=== PATIENT | female | born 1960 | race Hispanic/Latino ===

== ENCOUNTER 2018-01-23 05:49 | Day surgery (SDC) | payer MEDICAID ==
[~2018-01-23] VITALS: Ht 152.4 cm; Wt 90.9 kg
[~2018-01-23 05:49] MED LIST: CETI10TA57 PO; ERGO500014 PO; FLUTICASONE IH; LISI-613 PO; MONT10TA24 PO; OMEP20TA25 PO; PRAV20TA4 PO; PROVENTIL PO
[2018-01-23] MEDS ORDERED: SODIUM CHLORIDE 0.9% 1000ML 1,000 ML IV ONE (06:17)
[2018-01-23 06:48] VITALS: BP 146/55
[2018-01-23] MEDS ORDERED: LIDOCAINE HCL 2% 20ML ONE (07:22)
[2018-01-23] MEDS ORDERED: GLYCOPYRROLATE 0.2 MG/ML 5 ML VIAL ONE (07:22)
[2018-01-23] MEDS ORDERED: SUCCINYLCHOLINE CHLORIDE 20 MG/ML 10 ML VIAL ONE (07:22)
[2018-01-23] MEDS ORDERED: PROPOFOL 1000 MG/100 ML 100 ML IV ONE (07:23)
== END 2018-01-23 08:17 | disposition home or self-care (01) ==
LOC: DAH 05:49 → ENDO 05:49
PROVIDERS: ATTEND Internal Medicine
DX: K29.50 Unspecified chronic gastritis without bleeding (principal); E66.01 Morbid (severe) obesity due to excess calories; E11.9 Type 2 diabetes mellitus without complications; I85.10 Secondary esophageal varices without bleeding; K74.60 Unspecified cirrhosis of liver
CPT/HCPCS: 43239; 82948 ×2; 88305; 88312; 88342; A4606; J0330; J2704; J3490 ×2; J7030

== ENCOUNTER → 2018-02-27 | Outpatient (CLI) | payer MEDICAID ==
[2018-02-27 08:59] LABS: BASOPHILS % (AUTO) 0.6 % (0.0-5.0); EOSINOPHILS % (AUTO) 2.7 % (0.0-8.0); HEMATOCRIT 35.2 % (36-48); LYMPHOCYTES % (AUTO) 30.3 % (21.0-51.0); MEAN CORPUSCULAR HEMOGLOBIN 31.4 pg (27.0-33.0); MEAN CORPUSCULAR HGB CONC 35.2 g/dL (32.0-36.0); MEAN CORPUSCULAR VOLUME 89.3 fL (79-99); MONOCYTES % (AUTO) 7.3 % (3.0-13.0); NEUTROPHILS % (AUTO) 59.1 % (40.0-77.0); NUCLEATED RED BLOOD CELLS 0.1 % (0.0-0.19); PLATELET COUNT (AUTO) 74 K/uL (130-400); RED BLOOD CELL COUNT(AUTO) 3.94 MIL/uL (4.00-5.50); RED CELL DISTRIBUTION WIDTH 15.8 % (11.0-15.5); WHITE BLOOD COUNT (AUTO) 4.4 K/uL (4.8-10.8)
[2018-02-27 09:11] LABS: INR 1.07 (0.85-1.15); PROTHROMBIN TIME 11.2 SEC (9.6-11.6)
[2018-02-27 09:12] LABS: ALBUMIN 3.2 g/dL (3.5-5.0); BILIRUBIN,TOTAL 1.3 mg/dL (0.2-1.0); CREATININE 0.6 mg/dL (0.5-1.5); POTASSIUM 3.8 mmol/L (3.5-5.1); TOTAL PROTEIN, SERUM 7.3 g/dL (6.0-8.3)
[2018-02-28 08:17] LABS: HEPATITIS A ANTIBODY IGM Negative (Negative); HEPATITIS B CORE IGM Negative (Negative); HEPATITIS Bs ANTIGEN SCREEN P Negative (Negative)
[2018-03-02 13:15] LABS: ALPHA-1-ANTITRYPSIN 143 mg/dL (90-200)
== END | disposition home or self-care (01) ==
LOC: RAH 07:10
PROVIDERS: ATTEND Internal Medicine Gastroenterology
DX: K74.60 Unspecified cirrhosis of liver (principal); R16.1 Splenomegaly, not elsewhere classified
CPT/HCPCS: 36415; 76700; 80053; 80074; 82103; 82105; 82390; 85025; 85610; 86704; 86706; 86708; 93975

== ENCOUNTER 2018-08-04 06:29 | Day surgery (SDC) | payer MEDICAID ==
[~2018-08-04] VITALS: Ht 149.9 cm; Wt 92.1 kg
[~2018-08-04 06:29] MED LIST changes: -LISI-613 PO; +SODIUM CHLORIDE 0.9% 1000ML 1,000 ML IV ONE
[2018-08-04 07:40] VITALS: BP 116/58
[2018-08-04] MEDS ORDERED: PROP10TA10 PO (08:30)
[2018-08-04] MEDS ORDERED: LACT10PA5 PO (08:30)
[2018-08-04] MEDS ORDERED: HEPA20DI7 IM (08:30)
[2018-08-04] MEDS ORDERED: PROPOFOL 10 MG/ML 20ML VIAL IV ONE (09:15)
[2018-08-04 09:24] VITALS: BP 91/41
[2018-08-04 09:29] VITALS: BP 94/48
[2018-08-04 09:34] VITALS: BP 106/46
== END 2018-08-04 09:51 | disposition home or self-care (01) ==
LOC: ENDO 06:29 → DAH 06:29 → ENDO 09:51
PROVIDERS: ATTEND Internal Medicine Gastroenterology
DX: K29.50 Unspecified chronic gastritis without bleeding (principal); I85.00 Esophageal varices without bleeding; K76.6 Portal hypertension; K31.89 Other diseases of stomach and duodenum; K56.609 Unspecified intestinal obstruction, unspecified as to partial versus complete obstruction; E78.5 Hyperlipidemia, unspecified; E11.9 Type 2 diabetes mellitus without complications; Z68.41 Body mass index [BMI] 40.0-44.9, adult; K74.60 Unspecified cirrhosis of liver; Z85.3 Personal history of malignant neoplasm of breast; Z79.899 Other long term (current) drug therapy; Z98.890 Other specified postprocedural states; Z79.84 Long term (current) use of oral hypoglycemic drugs; Z90.49 Acquired absence of other specified parts of digestive tract; Z80.0 Family history of malignant neoplasm of digestive organs; Z86.010 Personal history of colon polyps; I10 Essential (primary) hypertension
CPT/HCPCS: 43239; 82948 ×2; 88305; 88312; 93005; A4606; J2704; J7030

== ENCOUNTER → 2018-09-01 | Outpatient (CLI) | payer MEDICAID ==
[~2018-09-01] MED LIST changes: +HEPA20DI7 IM; +LACT10PA5 PO; +PROP10TA10 PO; -SODIUM CHLORIDE 0.9% 1000ML 1,000 ML IV ONE
== END | disposition home or self-care (01) ==
LOC: RAH 08:42
PROVIDERS: ATTEND Internal Medicine Gastroenterology
DX: K74.60 Unspecified cirrhosis of liver (principal)
CPT/HCPCS: 76700; 93975

== ENCOUNTER → 2019-02-05 | Outpatient (CLI) | payer MEDICAID | END | disposition home or self-care (01) | LOC: RAH 07:47 | PROVIDERS: ATTEND Internal Medicine Gastroenterology | DX: K74.60 Unspecified cirrhosis of liver (principal) | CPT/HCPCS: 76700; 93975 ==

== ENCOUNTER 2019-05-12 11:28 | Inpatient (IN) | payer MEDICAID ==
[~2019-05-12] VITALS: Ht 152.4 cm; Wt 93.4 kg
[2019-05-12 11:54] LABS: BASOPHILS % (AUTO) 0.4 % (0.0-5.0); EOSINOPHILS % (AUTO) 2.7 % (0.0-8.0); HEMATOCRIT 42.6 % (36-48); LYMPHOCYTES % (AUTO) 16.9 % (21.0-51.0); MEAN CORPUSCULAR HEMOGLOBIN 31.2 pg (27.0-33.0); MEAN CORPUSCULAR HGB CONC 34.6 g/dL (32.0-36.0); MEAN CORPUSCULAR VOLUME 90.3 fL (79-99); MONOCYTES % (AUTO) 8.3 % (3.0-13.0); NEUTROPHILS % (AUTO) 71.7 % (40.0-77.0); NUCLEATED RED BLOOD CELLS 0.1 % (0.0-0.19); PLATELET COUNT (AUTO) 72 K/uL (130-400); RED BLOOD CELL COUNT(AUTO) 4.71 MIL/uL (4.00-5.50); RED CELL DISTRIBUTION WIDTH 15.4 % (11.0-15.5); WHITE BLOOD COUNT (AUTO) 6.9 K/uL (4.8-10.8)
[2019-05-12 12:03] LABS: CREATININE 0.5 mg/dL (0.5-1.5); POTASSIUM 3.8 mmol/L (3.5-5.1)
[2019-05-12 12:10] LABS: BILIRUBIN,TOTAL 1.4 mg/dL (0.2-1.0); TOTAL PROTEIN, SERUM 7.5 g/dL (6.0-8.3)
[2019-05-12 12:33] LABS: AMYLASE 65 U/L (25-115); CREATINE KINASE, TOTAL 31 U/L (21-232); LIPASE 218 U/L (114-286); MYOGLOBIN 30 ng/mL (10-92); TROPONIN I < 0.04 ng/mL (0.00-0.06)
[2019-05-12 12:36] LABS: PLATELET MORPHOLOGY COMMENT DECREASED
[2019-05-12] MEDS ORDERED: ONDANSETRON HCL 4 MG/2 ML VIAL IV PRN (16:45)
[2019-05-12] MEDS ORDERED: ACETAMINOPHEN 325 MG TAB PO PRN ×2 (16:45)
[2019-05-12] MEDS ORDERED: LACTULOSE 20 GM/30 ML UDCUP PO PRN (16:45)
[2019-05-12] MEDS ORDERED: MORPHINE SULFATE 2 MG/ML 1ML SYG IV PRN (16:45)
[2019-05-12] MEDS ORDERED: SODIUM CHLORIDE 0.9% 1000ML 1,000 ML IV ONE (17:21)
[2019-05-12] MEDS ORDERED: NITROGLYCERIN 1GM/1 INCH PACKET TD ONE (17:21)
[2019-05-12 18:08] LABS: HEMOGLOBIN A1C 5.9 % (4.0-6.0)
[2019-05-12 18:09] LABS: TROPONIN I 0.29 ng/mL (0.00-0.06)
[2019-05-12] MEDS ORDERED: IOHEXOL-350 75 ML VIAL IV ONE (19:14)
[2019-05-12] MEDS: METOPROLOL TARTRATE 25 MG TAB PO SCH (21:00)
[2019-05-12] MEDS ORDERED: METOPROLOL TARTRATE 25 MG TAB ONE (22:00)
[2019-05-12] MEDS ORDERED: FAMOTIDINE 20MG TAB 20 MG TAB ONE (22:00)
[2019-05-12 23:19] LABS: TROPONIN I 0.2 ng/mL (0.00-0.06)
[2019-05-13] MEDS ORDERED: NITROGLYCERIN 1GM/1 INCH PACKET TD ONE ×2 (02:06→09:25)
[2019-05-13] MEDS ORDERED: ACETAMINOPHEN 325 MG TAB ONE (07:05)
[2019-05-13 07:19] LABS: TROPONIN I 0.08 ng/mL (0.00-0.06)
[2019-05-13 07:23] LABS: CHOLESTEROL 185 mg/dL (<200); HDL CHOLESTEROL 100 mg/dL (35-85); LDL DIRECT 78 mg/dL (0-99); TRIGLYCERIDES 41 mg/dL (30-200)
[2019-05-13] MEDS: ENOXAPARIN SODIUM 40 MG/0.4 ML SYRINGE SQ SCH (09:00)
[2019-05-13] MEDS: ASPIRIN 325 MG TABLET PO SCH (09:00)
[2019-05-13] MEDS ORDERED: ASPIRIN 325 MG TABLET ONE (09:25)
[2019-05-13] MEDS ORDERED: METOPROLOL TARTRATE 25 MG TAB ONE (09:25)
[2019-05-13] MEDS ORDERED: FAMOTIDINE 20MG TAB 20 MG TAB ONE (09:25)
[2019-05-13] MEDS ORDERED: MORPHINE SULFATE 2 MG/ML 1ML SYG ONE (09:26)
[2019-05-13] MEDS ORDERED: ONDANSETRON HCL 4 MG/2 ML VIAL ONE (09:32)
[2019-05-13] MEDS ORDERED: SODIUM CHLORIDE 0.9% 1000ML 1,000 ML IV ONE (09:49)
[2019-05-13] MEDS ORDERED: REGADENOSON 0.4 MG/5 ML PF SYG IVP SCH (10:45)
[2019-05-13 15:22] VITALS: BP 143/69
[2019-05-13] MEDS: NITROGLYCERIN 1GM/1 INCH PACKET TD SCH ×2 (16:45→22:03)
--- NOTE | 2019-05-13 16:48 | NUR ---
DR. AN PAGED RE; ADMITTED UP TO PCU. PENDING CALL BACK.
--- NOTE | 2019-05-13 18:05 | NUR ---
PATIENT BACK FROM [facility], DENIES ANY CHEST PAIN.
[2019-05-13 19:00] VITALS: BP 142/71
[2019-05-13] MEDS: FAMOTIDINE 20MG TAB 20 MG TAB PO SCH ×2 (21:00→22:03)
[2019-05-13] MEDS: METOPROLOL TARTRATE 25 MG TAB PO SCH (21:00)
[2019-05-13] MEDS: SODIUM CHLORIDE 0.9% 1000ML 1,000 ML IV SCH ×2 (22:01→22:07)
[2019-05-13] MEDS: INSULIN HUMULIN R 100 UNIT/ML 3ML SQ SCH (22:05)
[2019-05-13 23:00] VITALS: BP 139/68
[2019-05-14] MEDS: NITROGLYCERIN 1GM/1 INCH PACKET TD SCH ×2 (01:18→10:54)
[2019-05-14 03:00] VITALS: BP 138/63
[2019-05-14 03:50] LABS: BASOPHILS % (AUTO) 0.6 % (0.0-5.0); HEMATOCRIT 32.9 % (36-48); HEMOGLOBIN A1C 5.8 % (4.0-6.0); LYMPHOCYTES % (AUTO) 20.2 % (21.0-51.0); MEAN CORPUSCULAR HEMOGLOBIN 31.5 pg (27.0-33.0); NEUTROPHILS % (AUTO) 68.2 % (40.0-77.0); NUCLEATED RED BLOOD CELLS 0.1 % (0.0-0.19); PLATELET COUNT (AUTO) 61 K/uL (130-400); RED BLOOD CELL COUNT(AUTO) 3.66 MIL/uL (4.00-5.50); RED CELL DISTRIBUTION WIDTH 15.4 % (11.0-15.5); WHITE BLOOD COUNT (AUTO) 5.7 K/uL (4.8-10.8)
[2019-05-14 04:09] LABS: CREATININE 0.5 mg/dL (0.5-1.5)
[2019-05-14] MEDS ORDERED: MAGNESIUM 2GM PREMIX 50ML 50 ML IV ONE (06:14)
[2019-05-14] MEDS ORDERED: MAGNESIUM 2GM PREMIX 50ML 50 ML IV PRN (06:15)
[2019-05-14] MEDS: INSULIN HUMULIN R 100 UNIT/ML 3ML SQ SCH ×2 (06:43→11:30)
[2019-05-14 07:40] VITALS: BP 133/68
[2019-05-14] MEDS: ENOXAPARIN SODIUM 40 MG/0.4 ML SYRINGE SQ SCH (09:00)
[2019-05-14] MEDS: FAMOTIDINE 20MG TAB 20 MG TAB PO SCH (10:53)
[2019-05-14] MEDS: ASPIRIN 325 MG TABLET PO SCH (10:53)
--- NOTE | 2019-05-14 11:32 | NUR ---
DC PLAN VISITED WITH PATIENT. PATIENT LIVES WITH SPOUSE. INDEPENDENT ABLE TO PERFORM ADL'S. PATIENT HAS NO SERVICES OR DME'S. FEELS SAFE TO RETURN HOME. Addendum: 05/14/19 at 1134 by RUFINA GIBBONS RN CM Amended: Links added.
[2019-05-14 11:35] VITALS: BP 155/74
[2019-05-14] MEDS: METOPROLOL TARTRATE 25 MG TAB PO SCH (13:03)
[2019-05-14 15:33] VITALS: BP 138/58
--- NOTE | 2019-05-14 17:53 | NUR ---
NURSING NOTE No chest pain. Rounds by Drs. Mckenna and John and discharged. No prescriptions. In good spirits.
== END 2019-05-14 17:45 | disposition home or self-care (01) | DRG 203 ==
LOC: EDH 11:28 → OBSVTOIN 11:29 → EDHIP 11:29 → INTOOBSV 11:29 → 2AH 05-13 14:26
PROVIDERS: ADMIT Internal Medicine; ATTEND Internal Medicine
DX: M94.0 Chondrocostal junction syndrome [Tietze] (principal); R18.8 Other ascites; K74.69 Other cirrhosis of liver; E11.9 Type 2 diabetes mellitus without complications; R79.89 Other specified abnormal findings of blood chemistry; E78.2 Mixed hyperlipidemia; I10 Essential (primary) hypertension; K21.9 Gastro-esophageal reflux disease without esophagitis; Z90.11 Acquired absence of right breast and nipple; Z85.3 Personal history of malignant neoplasm of breast; Z82.49 Family history of ischemic heart disease and other diseases of the circulatory system; Z83.3 Family history of diabetes mellitus; Z82.3 Family history of stroke; Z82.0 Family history of epilepsy and other diseases of the nervous system
CPT/HCPCS: 36415; 71275; 74021; 74176; 78452; 80048; 80053; 80061; 82150; 82550; 82948; 83036; 83690; 83735; 83874; 84484; 85025; 93005; 93017; 93306; 93971; 96374; A9500; G0378; J1815; J2405; J2785; J3475; J7030; Q9967

== ENCOUNTER 2019-08-31 08:10 | Day surgery (SDC) | payer MEDICAID ==
[~2019-08-31] VITALS: Ht 152.4 cm; Wt 96.2 kg
[~2019-08-31 08:10] MED LIST changes: +ATOR20TA65 PO; +EMPA25TA PO; -HEPA20DI7 IM; +INSU100V12 SQ; +LIRA0.6P SQ; +LOSA25TA41 PO; -PRAV20TA4 PO; +SODIUM CHLORIDE 0.9% 1000ML 1,000 ML IV ONE
[2019-08-31 08:45] VITALS: BP 118/96
[2019-08-31] MEDS ORDERED: PROPOFOL 10 MG/ML 20ML VIAL IV ONE (09:52)
[2019-08-31 10:02] VITALS: BP 117/52
[2019-08-31 10:07] VITALS: BP 122/53
[2019-08-31 10:12] VITALS: BP 124/60
[2019-08-31 10:17] VITALS: BP 128/64
== END 2019-08-31 10:30 | disposition home or self-care (01) ==
LOC: DAH 08:10 → ENDO 08:10
PROVIDERS: ATTEND Internal Medicine
DX: I85.10 Secondary esophageal varices without bleeding (principal); K74.60 Unspecified cirrhosis of liver; K56.609 Unspecified intestinal obstruction, unspecified as to partial versus complete obstruction; I10 Essential (primary) hypertension; E78.5 Hyperlipidemia, unspecified; E11.9 Type 2 diabetes mellitus without complications; Z85.3 Personal history of malignant neoplasm of breast; Z86.010 Personal history of colon polyps; Z79.899 Other long term (current) drug therapy; Z98.890 Other specified postprocedural states; Z90.49 Acquired absence of other specified parts of digestive tract; Z80.0 Family history of malignant neoplasm of digestive organs; Z88.5 Allergy status to narcotic agent
CPT/HCPCS: 43239; 82948; A4215; A4221; A4222; A4223; A4606; A4615; A4663; J2704; J7030

== ENCOUNTER → 2019-09-01 | Outpatient (CLI) | payer MEDICAID ==
[~2019-09-01] MED LIST changes: -SODIUM CHLORIDE 0.9% 1000ML 1,000 ML IV ONE
== END | disposition home or self-care (01) ==
LOC: RAH 08:17
PROVIDERS: ATTEND Internal Medicine Gastroenterology
DX: K74.60 Unspecified cirrhosis of liver (principal)
CPT/HCPCS: 76700; 93975

== ENCOUNTER → 2019-10-09 | Outpatient (CLI) | payer MEDICAID | END | disposition home or self-care (01) | LOC: RAH 12:33 | PROVIDERS: ATTEND Internal Medicine Gastroenterology | DX: R11.2 Nausea with vomiting, unspecified (principal) | CPT/HCPCS: 78264; A9541 ==

== ENCOUNTER → 2020-08-16 | Outpatient (CLI) | payer MEDICAID ==
[~2020-08-16] MED LIST changes: -MONT10TA24 PO; +MONT10TA26 PO
== END | disposition home or self-care (01) ==
LOC: RAH 09:18
PROVIDERS: ATTEND Internal Medicine Gastroenterology
DX: K74.60 Unspecified cirrhosis of liver (principal)
CPT/HCPCS: 76700; 93975

== ENCOUNTER → 2021-01-15 | Outpatient (CLI) | payer MEDICAID ==
[~2021-01-15] MED LIST changes: -MONT10TA26 PO; +MONT10TA32 PO
== END | disposition home or self-care (01) ==
LOC: RAH 08:28
PROVIDERS: ATTEND Internal Medicine Gastroenterology
DX: K74.60 Unspecified cirrhosis of liver (principal)
CPT/HCPCS: 76700; 93975

== ENCOUNTER → 2021-07-06 | Outpatient (CLI) | payer MEDICAID | END | disposition home or self-care (01) | LOC: RAH 07:35 | PROVIDERS: ATTEND Internal Medicine Gastroenterology | DX: K76.0 Fatty (change of) liver, not elsewhere classified (principal); K74.60 Unspecified cirrhosis of liver | CPT/HCPCS: 76700; 93975 ==

== ENCOUNTER 2021-11-20 17:43 | Inpatient (IN) | payer MEDICAID ==
[~2021-11-20] VITALS: Ht 152.4 cm; Wt 107.0 kg
[~2021-11-20 17:43] MED LIST changes: +ALBU90AE2 IH; +ASCO100031 PO; +CARAL PO; +DEXA6TAB PO; -FLUTICASONE IH; -LACT10PA5 PO; +LACT20PA6 PO; +MONT-39 PO; -MONT10TA32 PO; -OMEP20TA25 PO; +PANT40TA54 PO; -PROVENTIL PO; +RIFA550T PO; +TIZA-211 PO; +TRAM50TA4 PO
[2021-11-20 18:11] LABS: ABG BASE EXCESS 1.3 mmol/L (-2.0-3.0); ABG HCO3 24.8 mmol/L (21.0-28.0); ABG OXYGEN SATURATION 96.3 % (95.0-99.0); ABG PCO2 36 mmHg (32-45)
[2021-11-20 19:08] LABS: BASOPHILS % (AUTO) 0.2 % (0.0-5.0); HEMATOCRIT 44.4 % (36-48); LYMPHOCYTES % (AUTO) 4.5 % (21.0-51.0); MEAN CORPUSCULAR HEMOGLOBIN 30.8 pg (27.0-33.0); MEAN CORPUSCULAR HGB CONC 32.7 g/dL (32.0-36.0); MEAN CORPUSCULAR VOLUME 94.3 fL (79-99); MONOCYTES % (AUTO) 6.7 % (3.0-13.0); NEUTROPHILS % (AUTO) 87.2 % (40.0-77.0); PLATELET COUNT (AUTO) 36 K/uL (130-400); RED BLOOD CELL COUNT(AUTO) 4.71 MIL/uL (4.00-5.50); RED CELL DISTRIBUTION WIDTH 14.4 % (11.0-15.5); WHITE BLOOD COUNT (AUTO) 10.5 K/uL (4.8-10.8)
[2021-11-20 19:14] LABS: CREATININE 0.6 mg/dL (0.5-1.5); POTASSIUM 4.3 mmol/L (3.5-5.1)
[2021-11-20 19:29] LABS: ALBUMIN 2.5 g/dL (3.5-5.0); BILIRUBIN,TOTAL 3.5 mg/dL (0.2-1.0); TOTAL PROTEIN, SERUM 5.5 g/dL (6.0-8.3)
[2021-11-20] MEDS ORDERED: 0.9% NACL 250ML 250 ML ONE (21:19)
[2021-11-20] MEDS: CEFTRIAXONE 1G VIAL IVP SCH (21:31)
[2021-11-20] MEDS: DOXYCYCLINE 100MG+NS 250ML IV SCH (21:31)
[2021-11-20] MEDS ORDERED: PHARMACY COMMUNICATION MISC SCH (22:30)
[2021-11-20] MEDS ORDERED: DEXAMETHASONE SOD PHOSPHATE 4 MG/ML 1ML VIAL IVP SCH (22:30)
[2021-11-20] MEDS ORDERED: ERGOCALCIFEROL (VITAMIN D2) 50,000 UNIT CAPSULE PO ONE (22:30)
[2021-11-21] VITALS (12 sets, daily range): BP systolic 102–128; BP diastolic 38–58
[2021-11-21] MEDS: ALBUTEROL INHALER 90MCG/INH IH SCH ×3 (01:48→23:30)
[2021-11-21 06:02] LABS: APPEARANCE,URINE CLEAR (CLEAR); BILIRUBIN,URINE NEGATIVE (NEGATIVE); COLOR,URINE DARK YELLOW (YELLOW); GLUCOSE, URINE (UA) NEGATIVE (NEGATIVE); KETONES,URINE 15 mg/dL (NEGATIVE); LEUKOCYTE ESTERASE ,URINE NEGATIVE (NEGATIVE); NITRATE,URINE NEGATIVE (NEGATIVE); OCCULT BLOOD,URINE NEGATIVE (NEGATIVE); PROTEIN,URINE NEGATIVE (NEGATIVE)
[2021-11-21 06:11] LABS: BACTERIA,URINE Rare /HPF (None Seen); RBC,URINE 0-1 /HPF (0-1); SQUAMOUS EPITHELIAL CELL,UR 0-2 /HPF (0-2); WBC,URINE 0-1 /HPF (0-1)
[2021-11-21 06:16] LABS: BASOPHILS % (AUTO) 0.2 % (0.0-5.0); HEMATOCRIT 45.2 % (36-48); LYMPHOCYTES % (AUTO) 3.5 % (21.0-51.0); MEAN CORPUSCULAR HEMOGLOBIN 31.9 pg (27.0-33.0); MEAN CORPUSCULAR HGB CONC 33.4 g/dL (32.0-36.0); MEAN CORPUSCULAR VOLUME 95.6 fL (79-99); MONOCYTES % (AUTO) 3.3 % (3.0-13.0); NEUTROPHILS % (AUTO) 92.2 % (40.0-77.0); PLATELET COUNT (AUTO) 32 K/uL (130-400); RED BLOOD CELL COUNT(AUTO) 4.73 MIL/uL (4.00-5.50); RED CELL DISTRIBUTION WIDTH 14.5 % (11.0-15.5); WHITE BLOOD COUNT (AUTO) 10.8 K/uL (4.8-10.8)
[2021-11-21 06:41] LABS: ALBUMIN 2.4 g/dL (3.5-5.0); CREATININE 0.6 mg/dL (0.5-1.5); POTASSIUM 4.8 mmol/L (3.5-5.1); TOTAL PROTEIN, SERUM 5.7 g/dL (6.0-8.3)
[2021-11-21] MEDS: INSULIN HUMULIN R 100 UNIT/ML 3ML SQ SCH ×4 (07:06→20:24)
[2021-11-21] MEDS ORDERED: GUAIFENESIN-DM 200/20 MG 10 ML ONE (07:31)
[2021-11-21] MEDS ORDERED: ALBUTEROL INHALER 90MCG/INH IH ONE (08:05)
[2021-11-21] MEDS: ASCORBIC ACID 500 MG TAB PO SCH (08:57)
[2021-11-21] MEDS: CEFTRIAXONE 1G VIAL IVP SCH (08:57)
[2021-11-21] MEDS: FAMOTIDINE 20MG TAB PO SCH (08:57)
[2021-11-21] MEDS: DOXYCYCLINE 100MG+NS 250ML IV SCH ×2 (08:57→20:06)
[2021-11-21] MEDS: ZINC SULFATE 220 CAPSULE PO SCH (08:58)
[2021-11-21] MEDS ORDERED: ENOXAPARIN SODIUM 40 MG/0.4 ML SYRINGE SQ SCH (09:00)
[2021-11-21] MEDS ORDERED: DIAZEPAM 5 MG TABLET ONE (11:28)
[2021-11-21] MEDS: SOLU-MEDROL 125MG VIAL IVP SCH ×2 (11:36→16:36)
[2021-11-21] MEDS: DIAZEPAM 5 MG TABLET PO PRN (16:00)
[2021-11-21] MEDS: SUCRALFATE 1 GM TABLET PO SCH (16:36)
[2021-11-21] MEDS: CEFEPIME HCL 2 GM VIAL IVP SCH (16:36)
[2021-11-21] MEDS: ATORVASTATIN 20 MG TABLET PO SCH (20:06)
[2021-11-21] MEDS: LACTULOSE 20 GM/30 ML UDCUP PO SCH (20:06)
[2021-11-21] MEDS: RIFAXIMIN 550 MG TABLET PO SCH (20:07)
[2021-11-21] MEDS: MONTELUKAST SODIUM 10 MG TAB PO SCH (20:07)
[2021-11-22] VITALS: BP 112/57
[2021-11-22] MEDS: DIAZEPAM 5 MG TABLET PO PRN ×3 (00:19→21:15)
[2021-11-22] MEDS: SOLU-MEDROL 125MG VIAL IVP SCH ×3 (02:03→18:18)
[2021-11-22] MEDS: CEFEPIME HCL 2 GM VIAL IVP SCH ×2 (02:03→18:18)
[2021-11-22 04:00] VITALS: BP 122/53
[2021-11-22 04:38] LABS: BASOPHILS % (AUTO) 0.1 % (0.0-5.0); HEMATOCRIT 43.2 % (36-48); LYMPHOCYTES % (AUTO) 4.6 % (21.0-51.0); MEAN CORPUSCULAR HEMOGLOBIN 31.4 pg (27.0-33.0); MEAN CORPUSCULAR HGB CONC 33.1 g/dL (32.0-36.0); MEAN CORPUSCULAR VOLUME 94.9 fL (79-99); MONOCYTES % (AUTO) 4.6 % (3.0-13.0); NEUTROPHILS % (AUTO) 89.8 % (40.0-77.0); PLATELET COUNT (AUTO) 33 K/uL (130-400); RED BLOOD CELL COUNT(AUTO) 4.55 MIL/uL (4.00-5.50); RED CELL DISTRIBUTION WIDTH 14.2 % (11.0-15.5); WHITE BLOOD COUNT (AUTO) 7.9 K/uL (4.8-10.8)
[2021-11-22 04:54] LABS: INR 1.32 (0.85-1.15)
[2021-11-22 04:56] LABS: PARTIAL THROMBOPLASTIN TIME 30.3 SEC (26.3-35.5)
[2021-11-22 05:08] LABS: ALBUMIN 2.1 g/dL (3.5-5.0); BILIRUBIN,TOTAL 2.6 mg/dL (0.2-1.0); CREATININE 0.7 mg/dL (0.5-1.5); CRP QUANTITATIVE 112.5 mg/L (0.00-9.0); POTASSIUM 4.5 mmol/L (3.5-5.1); TOTAL PROTEIN, SERUM 5.4 g/dL (6.0-8.3)
[2021-11-22] MEDS: ALBUTEROL INHALER 90MCG/INH IH SCH ×4 (06:18→23:30)
[2021-11-22] MEDS: INSULIN HUMULIN R 100 UNIT/ML 3ML SQ SCH ×4 (07:30→22:15)
[2021-11-22 08:00] VITALS: BP 113/52
[2021-11-22] MEDS: FAMOTIDINE 20MG TAB PO SCH ×2 (09:00→09:59)
[2021-11-22] MEDS: LACTULOSE 20 GM/30 ML UDCUP PO SCH ×2 (09:58→21:00)
[2021-11-22] MEDS: DOXYCYCLINE 100MG+NS 250ML IV SCH ×2 (09:58→21:14)
[2021-11-22] MEDS: ZINC SULFATE 220 CAPSULE PO SCH (09:59)
[2021-11-22] MEDS: SUCRALFATE 1 GM TABLET PO SCH ×3 (09:59→18:18)
[2021-11-22] MEDS: ASCORBIC ACID 500 MG TAB PO SCH (09:59)
[2021-11-22] MEDS: RIFAXIMIN 550 MG TABLET PO SCH ×2 (09:59→21:15)
[2021-11-22] MEDS: PANTOPRAZOLE 40 MG TAB DR PO SCH (09:59)
[2021-11-22 12:00] VITALS: BP 111/55
[2021-11-22 16:00] VITALS: BP 99/54
[2021-11-22] MEDS: FUROSEMIDE 20 MG TABLET PO SCH (18:19)
[2021-11-22 20:16] VITALS: BP 115/60
[2021-11-22 20:32] LABS: BASOPHILS % (AUTO) 0.1 % (0.0-5.0); HEMATOCRIT 42.4 % (36-48); MEAN CORPUSCULAR HGB CONC 33.7 g/dL (32.0-36.0); MEAN CORPUSCULAR VOLUME 94.9 fL (79-99); NEUTROPHILS % (AUTO) 91.4 % (40.0-77.0); PLATELET COUNT (AUTO) 34 K/uL (130-400); RED BLOOD CELL COUNT(AUTO) 4.47 MIL/uL (4.00-5.50); RED CELL DISTRIBUTION WIDTH 13.9 % (11.0-15.5); WHITE BLOOD COUNT (AUTO) 7.7 K/uL (4.8-10.8)
[2021-11-22] MEDS: SPIRONOLACTONE 25 MG TAB PO SCH (21:15)
[2021-11-22] MEDS: MONTELUKAST SODIUM 10 MG TAB PO SCH (21:15)
[2021-11-22] MEDS: ATORVASTATIN 20 MG TABLET PO SCH (21:15)
[2021-11-23] VITALS (7 sets, daily range): BP systolic 112–133; BP diastolic 55–71
[2021-11-23] MEDS: SOLU-MEDROL 125MG VIAL IVP SCH ×3 (01:06→16:44)
[2021-11-23] MEDS: CEFEPIME HCL 2 GM VIAL IVP SCH ×2 (01:06→13:07)
[2021-11-23 04:45] LABS: BASOPHILS % (AUTO) 0.1 % (0.0-5.0); LYMPHOCYTES % (AUTO) 4.8 % (21.0-51.0); MEAN CORPUSCULAR HGB CONC 33.3 g/dL (32.0-36.0); MEAN CORPUSCULAR VOLUME 93.1 fL (79-99); MONOCYTES % (AUTO) 4.7 % (3.0-13.0); NEUTROPHILS % (AUTO) 89.7 % (40.0-77.0); PLATELET COUNT (AUTO) 34 K/uL (130-400); RED BLOOD CELL COUNT(AUTO) 4.51 MIL/uL (4.00-5.50); RED CELL DISTRIBUTION WIDTH 13.7 % (11.0-15.5); WHITE BLOOD COUNT (AUTO) 7.3 K/uL (4.8-10.8)
[2021-11-23 04:55] LABS: BILIRUBIN,TOTAL 2.6 mg/dL (0.2-1.0); CREATININE 0.6 mg/dL (0.5-1.5); POTASSIUM 4.3 mmol/L (3.5-5.1); TOTAL PROTEIN, SERUM 5.1 g/dL (6.0-8.3)
[2021-11-23] MEDS: ALBUTEROL INHALER 90MCG/INH IH SCH ×4 (05:30→21:17)
[2021-11-23] MEDS: SUCRALFATE 1 GM TABLET PO SCH ×3 (07:35→16:44)
[2021-11-23] MEDS: INSULIN HUMULIN R 100 UNIT/ML 3ML SQ SCH ×4 (07:37→21:17)
[2021-11-23] MEDS: RIFAXIMIN 550 MG TABLET PO SCH ×2 (08:17→21:14)
[2021-11-23] MEDS: FAMOTIDINE 20MG TAB PO SCH (08:17)
[2021-11-23] MEDS: DOXYCYCLINE 100MG+NS 250ML IV SCH ×2 (08:17→21:14)
[2021-11-23] MEDS: SPIRONOLACTONE 25 MG TAB PO SCH ×2 (08:18→21:15)
[2021-11-23] MEDS: ZINC SULFATE 220 CAPSULE PO SCH (08:18)
[2021-11-23] MEDS: ASCORBIC ACID 500 MG TAB PO SCH (08:18)
[2021-11-23] MEDS: FUROSEMIDE 20 MG TABLET PO SCH ×2 (08:18→16:44)
[2021-11-23] MEDS: PANTOPRAZOLE 40 MG TAB DR PO SCH (08:18)
[2021-11-23] MEDS: LACTULOSE 20 GM/30 ML UDCUP PO SCH ×2 (08:32→21:14)
[2021-11-23 10:39] LABS: INR 1.32 (0.85-1.15)
[2021-11-23 10:40] LABS: PARTIAL THROMBOPLASTIN TIME 28.2 SEC (26.3-35.5)
[2021-11-23] MEDS: DIAZEPAM 5 MG TABLET PO PRN (14:18)
[2021-11-23] MEDS: TRAMADOL HCL 50 MG TABLET PO PRN (14:19)
[2021-11-23] MEDS ORDERED: BISACODYL 10 MG SUPP.RECT RC ONE (15:00)
[2021-11-23 20:10] LABS: BASOPHILS % (AUTO) 0.2 % (0.0-5.0); LYMPHOCYTES % (AUTO) 3.4 % (21.0-51.0); MEAN CORPUSCULAR HEMOGLOBIN 32.1 pg (27.0-33.0); MEAN CORPUSCULAR HGB CONC 33.9 g/dL (32.0-36.0); MEAN CORPUSCULAR VOLUME 94.8 fL (79-99); MONOCYTES % (AUTO) 6.4 % (3.0-13.0); NEUTROPHILS % (AUTO) 89.4 % (40.0-77.0); PLATELET COUNT (AUTO) 24 K/uL (130-400); RED BLOOD CELL COUNT(AUTO) 4.64 MIL/uL (4.00-5.50); RED CELL DISTRIBUTION WIDTH 13.9 % (11.0-15.5); WHITE BLOOD COUNT (AUTO) 9.8 K/uL (4.8-10.8)
[2021-11-23] MEDS: MONTELUKAST SODIUM 10 MG TAB PO SCH (21:15)
[2021-11-23] MEDS: ATORVASTATIN 20 MG TABLET PO SCH (21:15)
[2021-11-24] MEDS: CEFEPIME HCL 2 GM VIAL IVP SCH ×2 (02:07→15:06)
[2021-11-24] MEDS: SOLU-MEDROL 125MG VIAL IVP SCH ×2 (02:07→09:30)
[2021-11-24] MEDS: ALBUTEROL INHALER 90MCG/INH IH SCH ×4 (02:08→20:09)
[2021-11-24 04:00] VITALS: BP 136/57
[2021-11-24 04:22] LABS: BASOPHILS % (AUTO) 0.1 % (0.0-5.0); HEMATOCRIT 42.6 % (36-48); LYMPHOCYTES % (AUTO) 4.3 % (21.0-51.0); MEAN CORPUSCULAR HEMOGLOBIN 32.4 pg (27.0-33.0); MEAN CORPUSCULAR HGB CONC 34.3 g/dL (32.0-36.0); MEAN CORPUSCULAR VOLUME 94.5 fL (79-99); MONOCYTES % (AUTO) 5.9 % (3.0-13.0); NEUTROPHILS % (AUTO) 88.7 % (40.0-77.0); PLATELET COUNT (AUTO) 25 K/uL (130-400); RED BLOOD CELL COUNT(AUTO) 4.51 MIL/uL (4.00-5.50); RED CELL DISTRIBUTION WIDTH 13.8 % (11.0-15.5)
[2021-11-24 04:59] LABS: ALBUMIN 2.2 g/dL (3.5-5.0); BILIRUBIN,TOTAL 3.7 mg/dL (0.2-1.0); CREATININE 0.8 mg/dL (0.5-1.5); POTASSIUM 4.7 mmol/L (3.5-5.1); TOTAL PROTEIN, SERUM 5.7 g/dL (6.0-8.3)
[2021-11-24 07:36] VITALS: BP 135/53
[2021-11-24] MEDS: FAMOTIDINE 20MG TAB PO SCH (07:59)
[2021-11-24] MEDS: INSULIN HUMULIN R 100 UNIT/ML 3ML SQ SCH ×4 (08:45→20:07)
[2021-11-24] MEDS: DIAZEPAM 5 MG TABLET PO PRN ×2 (08:52→16:57)
[2021-11-24] MEDS: FUROSEMIDE 20 MG TABLET PO SCH ×2 (08:56→17:00)
[2021-11-24] MEDS: SUCRALFATE 1 GM TABLET PO SCH ×3 (08:56→17:00)
[2021-11-24] MEDS: ZINC SULFATE 220 CAPSULE PO SCH (08:56)
[2021-11-24] MEDS: RIFAXIMIN 550 MG TABLET PO SCH ×2 (08:56→20:06)
[2021-11-24] MEDS: PANTOPRAZOLE 40 MG TAB DR PO SCH (08:57)
[2021-11-24] MEDS: DOXYCYCLINE 100MG+NS 250ML IV SCH ×3 (08:57→20:09)
[2021-11-24] MEDS: SPIRONOLACTONE 25 MG TAB PO SCH ×2 (08:57→20:06)
[2021-11-24] MEDS: LACTULOSE 20 GM/30 ML UDCUP PO SCH ×2 (08:57→20:06)
[2021-11-24] MEDS: ASCORBIC ACID 500 MG TAB PO SCH (09:00)
[2021-11-24 11:37] VITALS: BP 110/57
[2021-11-24] MEDS: TRAMADOL HCL 50 MG TABLET PO PRN (16:00)
[2021-11-24 16:05] VITALS: BP 115/53
[2021-11-24] MEDS: SOLU-MEDROL 40MG VIAL IVP SCH (17:04)
[2021-11-24 20:00] VITALS: BP 105/51
[2021-11-24] MEDS: ATORVASTATIN 20 MG TABLET PO SCH (20:06)
[2021-11-24] MEDS: MONTELUKAST SODIUM 10 MG TAB PO SCH (20:06)
[2021-11-24 21:58] LABS: ABG BASE EXCESS 2.5 mmol/L (-2.0-3.0); ABG HCO3 26.2 mmol/L (21.0-28.0); ABG OXYGEN SATURATION 86.3 % (95.0-99.0); ABG PCO2 38 mmHg (32-45)
[2021-11-25] VITALS: BP 131/46
[2021-11-25] MEDS: DIAZEPAM 5 MG TABLET PO PRN ×3 (01:00→21:11)
[2021-11-25] MEDS: CEFEPIME HCL 2 GM VIAL IVP SCH ×2 (01:46→14:27)
[2021-11-25] MEDS: SOLU-MEDROL 40MG VIAL IVP SCH ×3 (01:46→16:25)
[2021-11-25] MEDS: ALBUTEROL INHALER 90MCG/INH IH SCH ×3 (01:46→20:45)
[2021-11-25 04:00] VITALS: BP 125/88
[2021-11-25 04:33] LABS: BASOPHILS % (AUTO) 0.3 % (0.0-5.0); HEMATOCRIT 37.6 % (36-48); LYMPHOCYTES % (AUTO) 4.2 % (21.0-51.0); MEAN CORPUSCULAR HEMOGLOBIN 32.8 pg (27.0-33.0); MEAN CORPUSCULAR HGB CONC 34.8 g/dL (32.0-36.0); MEAN CORPUSCULAR VOLUME 94.2 fL (79-99); MONOCYTES % (AUTO) 3.9 % (3.0-13.0); NEUTROPHILS % (AUTO) 90.7 % (40.0-77.0); PLATELET COUNT (AUTO) 31 K/uL (130-400); RED BLOOD CELL COUNT(AUTO) 3.99 MIL/uL (4.00-5.50); RED CELL DISTRIBUTION WIDTH 13.4 % (11.0-15.5); WHITE BLOOD COUNT (AUTO) 7.4 K/uL (4.8-10.8)
[2021-11-25 04:43] LABS: CREATININE 0.6 mg/dL (0.5-1.5); POTASSIUM 5.1 mmol/L (3.5-5.1)
[2021-11-25] MEDS: SUCRALFATE 1 GM TABLET PO SCH ×3 (06:30→16:25)
[2021-11-25 08:05] VITALS: BP 118/42
[2021-11-25] MEDS: INSULIN HUMULIN R 100 UNIT/ML 3ML SQ SCH ×4 (08:12→20:47)
[2021-11-25] MEDS: ASCORBIC ACID 500 MG TAB PO SCH (08:40)
[2021-11-25] MEDS: DOXYCYCLINE 100MG+NS 250ML IV SCH ×2 (08:40→20:45)
[2021-11-25] MEDS: FUROSEMIDE 20 MG TABLET PO SCH ×2 (08:40→16:25)
[2021-11-25] MEDS: FAMOTIDINE 20MG TAB PO SCH (08:40)
[2021-11-25] MEDS: SPIRONOLACTONE 25 MG TAB PO SCH ×2 (08:40→20:45)
[2021-11-25] MEDS: ZINC SULFATE 220 CAPSULE PO SCH (08:40)
[2021-11-25] MEDS: PANTOPRAZOLE 40 MG TAB DR PO SCH (08:40)
[2021-11-25] MEDS: RIFAXIMIN 550 MG TABLET PO SCH ×2 (08:40→20:45)
[2021-11-25] MEDS: LACTULOSE 20 GM/30 ML UDCUP PO SCH ×2 (09:01→20:45)
[2021-11-25 11:55] VITALS: BP 122/51
[2021-11-25] MEDS ORDERED: CLINIMIX E 5% IV ONE (14:30)
[2021-11-25] MEDS ORDERED: [UNRECOGNIZED DRUG - NUTRITION] IV ONE (14:30)
[2021-11-25] MEDS ORDERED: [UNRECOGNIZED DRUG - OTHER] IV ONE (14:30)
[2021-11-25 16:05] VITALS: BP 117/43
[2021-11-25 20:00] VITALS: BP 123/50
[2021-11-25] MEDS: TRAMADOL HCL 50 MG TABLET PO PRN (20:01)
[2021-11-25] MEDS: MONTELUKAST SODIUM 10 MG TAB PO SCH (20:44)
[2021-11-25] MEDS: ATORVASTATIN 20 MG TABLET PO SCH (20:45)
[2021-11-26] VITALS: BP 117/41
[2021-11-26] MEDS: SOLU-MEDROL 40MG VIAL IVP SCH ×3 (01:47→16:34)
[2021-11-26] MEDS: CEFEPIME HCL 2 GM VIAL IVP SCH ×2 (01:47→14:02)
[2021-11-26] MEDS: ALBUTEROL INHALER 90MCG/INH IH SCH ×4 (01:47→20:23)
[2021-11-26 04:00] VITALS: BP 125/38
[2021-11-26 04:16] LABS: BASOPHILS % (AUTO) 0.1 % (0.0-5.0); HEMATOCRIT 35.8 % (36-48); LYMPHOCYTES % (AUTO) 2.6 % (21.0-51.0); MEAN CORPUSCULAR HEMOGLOBIN 32.5 pg (27.0-33.0); MEAN CORPUSCULAR HGB CONC 34.9 g/dL (32.0-36.0); MONOCYTES % (AUTO) 2.5 % (3.0-13.0); NEUTROPHILS % (AUTO) 94.1 % (40.0-77.0); PLATELET COUNT (AUTO) 30 K/uL (130-400); RED BLOOD CELL COUNT(AUTO) 3.85 MIL/uL (4.00-5.50); RED CELL DISTRIBUTION WIDTH 13.4 % (11.0-15.5); WHITE BLOOD COUNT (AUTO) 8.6 K/uL (4.8-10.8)
[2021-11-26 04:32] LABS: CREATININE 0.6 mg/dL (0.5-1.5); TOTAL PROTEIN, SERUM 5.2 g/dL (6.0-8.3)
[2021-11-26] MEDS: SUCRALFATE 1 GM TABLET PO SCH ×3 (06:36→16:34)
[2021-11-26] MEDS: INSULIN HUMULIN R 100 UNIT/ML 3ML SQ SCH ×4 (06:42→20:59)
[2021-11-26] MEDS: LACTULOSE 20 GM/30 ML UDCUP PO SCH ×2 (07:40→20:23)
[2021-11-26 08:05] VITALS: BP 120/47
[2021-11-26] MEDS ORDERED: LACTULOSE 20 GM/30 ML UDCUP PO PRN (08:30)
[2021-11-26] MEDS: DOXYCYCLINE 100MG+NS 250ML IV SCH ×2 (08:41→20:22)
[2021-11-26] MEDS: ASCORBIC ACID 500 MG TAB PO SCH (08:41)
[2021-11-26] MEDS: RIFAXIMIN 550 MG TABLET PO SCH ×2 (08:41→20:23)
[2021-11-26] MEDS: ZINC SULFATE 220 CAPSULE PO SCH (08:41)
[2021-11-26] MEDS: FAMOTIDINE 20MG TAB PO SCH (08:41)
[2021-11-26] MEDS: PANTOPRAZOLE 40 MG TAB DR PO SCH (08:42)
[2021-11-26] MEDS: FUROSEMIDE 20 MG TABLET PO SCH (08:42)
[2021-11-26] MEDS: SPIRONOLACTONE 25 MG TAB PO SCH ×2 (08:42→20:22)
[2021-11-26] MEDS: DIAZEPAM 5 MG TABLET PO PRN ×2 (09:02→20:34)
[2021-11-26] MEDS ORDERED: INSULIN HUMULIN R 100 UNIT/ML 3ML SQ SCH (11:30)
[2021-11-26 12:05] VITALS: BP 118/49
[2021-11-26] MEDS ORDERED: [UNRECOGNIZED DRUG - NUTRITION] IV ONE ×2 (15:30)
[2021-11-26 16:05] VITALS: BP 131/54
[2021-11-26] MEDS: SIMETHICONE 80 MG TAB.CHEW PO PRN (16:34)
[2021-11-26 20:00] VITALS: BP 136/50
[2021-11-26] MEDS: MONTELUKAST SODIUM 10 MG TAB PO SCH (20:22)
[2021-11-26] MEDS: ATORVASTATIN 20 MG TABLET PO SCH (20:22)
[2021-11-26] MEDS ORDERED: INSULIN GLARGINE 100 UNITS/ML 10 ML VIAL SQ SCH (21:00)
[2021-11-27] VITALS (7 sets, daily range): BP systolic 118–153; BP diastolic 53–72
[2021-11-27] MEDS ORDERED: ONDANSETRON 4MG INJ ONE (00:48)
[2021-11-27] MEDS ORDERED: ONDANSETRON 4MG INJ IVP PRN (01:00)
[2021-11-27] MEDS: SOLU-MEDROL 40MG VIAL IVP SCH ×3 (02:26→16:46)
[2021-11-27] MEDS: CEFEPIME HCL 2 GM VIAL IVP SCH ×2 (02:27→13:05)
[2021-11-27] MEDS: ALBUTEROL INHALER 90MCG/INH IH SCH ×3 (02:27→20:30)
[2021-11-27 05:02] LABS: HEMATOCRIT 37.3 % (36-48); MEAN CORPUSCULAR HEMOGLOBIN 32.3 pg (27.0-33.0); MEAN CORPUSCULAR HGB CONC 35.1 g/dL (32.0-36.0); MEAN CORPUSCULAR VOLUME 92.1 fL (79-99); PLATELET COUNT (AUTO) 23 K/uL (130-400); RED BLOOD CELL COUNT(AUTO) 4.05 MIL/uL (4.00-5.50); RED CELL DISTRIBUTION WIDTH 13.5 % (11.0-15.5); WHITE BLOOD COUNT (AUTO) 9.9 K/uL (4.8-10.8)
[2021-11-27 05:25] LABS: CREATININE 0.6 mg/dL (0.5-1.5); POTASSIUM 5.8 mmol/L (3.5-5.1)
[2021-11-27] MEDS: SUCRALFATE 1 GM TABLET PO SCH ×3 (06:14→16:46)
[2021-11-27] MEDS: INSULIN HUMULIN R 100 UNIT/ML 3ML SQ SCH ×8 (06:16→21:38)
[2021-11-27] MEDS ORDERED: KAYEXALATE 15GM/60ML PO SCH (08:30)
[2021-11-27] MEDS ORDERED: DEXMEDETOMIDINE 400MCG/NS100ML IV SCH (09:16)
[2021-11-27] MEDS: RIFAXIMIN 550 MG TABLET PO SCH ×2 (09:16→21:36)
[2021-11-27] MEDS: LACTULOSE 20 GM/30 ML UDCUP PO SCH ×2 (09:16→21:00)
[2021-11-27] MEDS: DOXYCYCLINE 100MG+NS 250ML IV SCH (09:17)
[2021-11-27] MEDS: PANTOPRAZOLE 40 MG/VIAL IVP SCH (09:48)
[2021-11-27] MEDS: FUROSEMIDE 20MG VIAL IV SCH ×2 (09:49→21:36)
[2021-11-27] MEDS ORDERED: [UNRECOGNIZED DRUG - NUTRITION] IV ONE (13:30)
[2021-11-27] MEDS ORDERED: INSULIN GLARGINE 100 UNITS/ML 10 ML VIAL SQ SCH (21:00)
[2021-11-27] MEDS: ATORVASTATIN 20 MG TABLET PO SCH (21:36)
[2021-11-27] MEDS: MONTELUKAST SODIUM 10 MG TAB PO SCH (21:36)
[2021-11-28] VITALS: BP 138/55
[2021-11-28] MEDS: SOLU-MEDROL 40MG VIAL IVP SCH ×3 (01:00→16:43)
[2021-11-28] MEDS: CEFEPIME HCL 2 GM VIAL IVP SCH (01:00)
[2021-11-28] MEDS: ALBUTEROL INHALER 90MCG/INH IH SCH ×2 (02:30→20:30)
[2021-11-28 04:00] VITALS: BP 120/61
[2021-11-28 04:40] LABS: BASOPHILS % (AUTO) 0.1 % (0.0-5.0); HEMATOCRIT 35.2 % (36-48); LYMPHOCYTES % (AUTO) 2.2 % (21.0-51.0); MEAN CORPUSCULAR HEMOGLOBIN 33.2 pg (27.0-33.0); MEAN CORPUSCULAR HGB CONC 36.1 g/dL (32.0-36.0); MEAN CORPUSCULAR VOLUME 92.1 fL (79-99); MONOCYTES % (AUTO) 2.4 % (3.0-13.0); NEUTROPHILS % (AUTO) 94.4 % (40.0-77.0); PLATELET COUNT (AUTO) 20 K/uL (130-400); RED BLOOD CELL COUNT(AUTO) 3.82 MIL/uL (4.00-5.50); RED CELL DISTRIBUTION WIDTH 13.9 % (11.0-15.5); WHITE BLOOD COUNT (AUTO) 8.8 K/uL (4.8-10.8)
[2021-11-28 04:50] LABS: ALBUMIN 1.8 g/dL (3.5-5.0); BILIRUBIN,TOTAL 2.5 mg/dL (0.2-1.0); CREATININE 0.6 mg/dL (0.5-1.5); POTASSIUM 5.2 mmol/L (3.5-5.1)
[2021-11-28 05:48] LABS: PLATELET MORPHOLOGY COMMENT MARKED DECREASE
[2021-11-28] MEDS: SUCRALFATE 1 GM TABLET PO SCH ×3 (06:28→16:43)
[2021-11-28] MEDS: INSULIN HUMULIN R 100 UNIT/ML 3ML SQ SCH ×3 (06:29→11:42)
[2021-11-28] MEDS ORDERED: INSULIN HUMULIN R 100 UNIT/ML 3ML SQ SCH (07:30)
[2021-11-28 08:00] VITALS: BP 139/68
[2021-11-28] MEDS: PANTOPRAZOLE 40 MG/VIAL IVP SCH (08:10)
[2021-11-28] MEDS: RIFAXIMIN 550 MG TABLET PO SCH ×2 (08:10→21:25)
[2021-11-28] MEDS: LACTULOSE 20 GM/30 ML UDCUP PO SCH ×2 (08:10→21:00)
[2021-11-28] MEDS: FUROSEMIDE 20MG VIAL IV SCH ×2 (08:17→21:30)
[2021-11-28] MEDS ORDERED: KAYEXALATE 15GM/60ML PO SCH (08:30)
[2021-11-28] MEDS ORDERED: INSULIN GLARGINE 100 UNITS/ML 10 ML VIAL SQ SCH (10:30)
[2021-11-28] MEDS: NYSTATIN 15 GM POWDER TP SCH ×2 (11:03→21:29)
[2021-11-28 11:55] VITALS: BP 126/64
[2021-11-28] MEDS ORDERED: PHARMACY COMMUNICATION MISC SCH (13:00)
[2021-11-28] MEDS: INSULIN R NPO SS2 SQ SCH ×3 (14:06→21:27)
[2021-11-28 16:00] VITALS: BP 126/67
[2021-11-28] MEDS: D5W-1/2 NS/20MEQ KCL 1,000 ML IV SCH (16:47)
[2021-11-28 20:00] VITALS: BP 112/49
[2021-11-28] MEDS: DIAZEPAM 5 MG TABLET PO PRN (21:25)
[2021-11-28] MEDS: MONTELUKAST SODIUM 10 MG TAB PO SCH (21:25)
[2021-11-28] MEDS: ATORVASTATIN 20 MG TABLET PO SCH (21:25)
[2021-11-28] MEDS: INSULIN GLARGINE 100 UNITS/ML 10 ML VIAL SQ SCH (21:28)
[2021-11-29] VITALS (7 sets, daily range): BP systolic 100–129; BP diastolic 50–57
[2021-11-29] MEDS: SOLU-MEDROL 40MG VIAL IVP SCH ×3 (01:00→16:04)
[2021-11-29] MEDS: INSULIN R NPO SS2 SQ SCH ×6 (02:00→21:49)
[2021-11-29] MEDS: ALBUTEROL INHALER 90MCG/INH IH SCH ×4 (02:30→21:37)
[2021-11-29 04:14] LABS: MEAN CORPUSCULAR HEMOGLOBIN 32.6 pg (27.0-33.0); MEAN CORPUSCULAR VOLUME 90.7 fL (79-99); RED BLOOD CELL COUNT(AUTO) 3.86 MIL/uL (4.00-5.50); RED CELL DISTRIBUTION WIDTH 13.9 % (11.0-15.5); WHITE BLOOD COUNT (AUTO) 9.8 K/uL (4.8-10.8)
[2021-11-29 04:36] LABS: ALBUMIN 1.8 g/dL (3.5-5.0); CREATININE 0.5 mg/dL (0.5-1.5); POTASSIUM 4.3 mmol/L (3.5-5.1)
[2021-11-29] MEDS: SUCRALFATE 1 GM TABLET PO SCH ×3 (06:49→16:05)
[2021-11-29] MEDS: FUROSEMIDE 20MG VIAL IV SCH ×2 (08:17→21:37)
[2021-11-29] MEDS: PANTOPRAZOLE 40 MG/VIAL IVP SCH (08:18)
[2021-11-29] MEDS: RIFAXIMIN 550 MG TABLET PO SCH ×2 (08:18→21:37)
[2021-11-29] MEDS: LACTULOSE 20 GM/30 ML UDCUP PO SCH ×2 (08:18→21:00)
[2021-11-29] MEDS: NYSTATIN 15 GM POWDER TP SCH ×2 (08:18→21:48)
[2021-11-29] MEDS: DIAZEPAM 5 MG TABLET PO PRN ×3 (10:21→21:37)
[2021-11-29] MEDS: D5W-1/2 NS/20MEQ KCL 1,000 ML IV SCH (12:00)
[2021-11-29] MEDS: MONTELUKAST SODIUM 10 MG TAB PO SCH (21:37)
[2021-11-29] MEDS: ATORVASTATIN 20 MG TABLET PO SCH (21:37)
[2021-11-29] MEDS: SIMETHICONE 80 MG TAB.CHEW PO PRN (21:37)
[2021-11-29] MEDS: INSULIN GLARGINE 100 UNITS/ML 10 ML VIAL SQ SCH (21:47)
[2021-11-30 00:15] VITALS: BP 108/55
[2021-11-30] MEDS: SOLU-MEDROL 40MG VIAL IVP SCH ×3 (01:49→17:47)
[2021-11-30] MEDS: INSULIN R NPO SS2 SQ SCH ×5 (01:51→20:36)
[2021-11-30] MEDS: ALBUTEROL INHALER 90MCG/INH IH SCH ×4 (02:30→20:30)
[2021-11-30 03:30] VITALS: BP 111/57
[2021-11-30 04:27] LABS: MEAN CORPUSCULAR HEMOGLOBIN 32.4 pg (27.0-33.0); MEAN CORPUSCULAR HGB CONC 35.6 g/dL (32.0-36.0); MEAN CORPUSCULAR VOLUME 91.1 fL (79-99); PLATELET COUNT (AUTO) 15 K/uL (130-400); RED BLOOD CELL COUNT(AUTO) 3.95 MIL/uL (4.00-5.50); RED CELL DISTRIBUTION WIDTH 14.3 % (11.0-15.5); WHITE BLOOD COUNT (AUTO) 11.6 K/uL (4.8-10.8)
[2021-11-30 04:37] LABS: ALBUMIN 1.8 g/dL (3.5-5.0); CREATININE 0.6 mg/dL (0.5-1.5); POTASSIUM 4.9 mmol/L (3.5-5.1)
[2021-11-30] MEDS: SUCRALFATE 1 GM TABLET PO SCH ×3 (06:36→17:00)
[2021-11-30] MEDS: D5W-1/2 NS/20MEQ KCL 1,000 ML IV SCH (07:00)
[2021-11-30 08:00] VITALS: BP 121/39
[2021-11-30] MEDS: PANTOPRAZOLE 40 MG/VIAL IVP SCH (09:07)
[2021-11-30] MEDS: DIAZEPAM 5 MG TABLET PO PRN ×2 (09:07→16:52)
[2021-11-30] MEDS: FUROSEMIDE 20MG VIAL IV SCH ×2 (09:08→20:17)
[2021-11-30] MEDS: RIFAXIMIN 550 MG TABLET PO SCH ×2 (09:11→20:16)
[2021-11-30] MEDS: LACTULOSE 20 GM/30 ML UDCUP PO SCH ×2 (09:12→20:17)
[2021-11-30] MEDS: NYSTATIN 15 GM POWDER TP SCH ×2 (09:13→20:37)
[2021-11-30 11:45] VITALS: BP 112/48
[2021-11-30] MEDS: SIMETHICONE 80 MG TAB.CHEW PO PRN ×2 (12:06→20:17)
[2021-11-30] MEDS ORDERED: 0.9% NACL 250ML 250 ML ONE (14:32)
[2021-11-30 15:29] VITALS: BP 135/57
[2021-11-30] MEDS: ACETAMINOPHEN 325 MG TAB PO PRN ×2 (18:06→19:08)
[2021-11-30 20:00] VITALS: BP 131/50
[2021-11-30] MEDS: MONTELUKAST SODIUM 10 MG TAB PO SCH (20:16)
[2021-11-30] MEDS: ATORVASTATIN 20 MG TABLET PO SCH (20:17)
[2021-11-30] MEDS: INSULIN GLARGINE 100 UNITS/ML 10 ML VIAL SQ SCH (20:37)
[2021-12-01] VITALS (7 sets, daily range): BP systolic 116–142; BP diastolic 43–69
[2021-12-01] MEDS: INSULIN R NPO SS2 SQ SCH ×6 (00:13→20:25)
[2021-12-01] MEDS: SOLU-MEDROL 40MG VIAL IVP SCH ×3 (00:19→16:48)
[2021-12-01] MEDS: DIAZEPAM 5 MG TABLET PO PRN ×3 (00:26→20:15)
[2021-12-01] MEDS: ALBUTEROL INHALER 90MCG/INH IH SCH ×2 (02:30→20:30)
[2021-12-01] MEDS: D5W-1/2 NS/20MEQ KCL 1,000 ML IV SCH ×2 (03:30→23:35)
[2021-12-01 04:45] LABS: HEMATOCRIT 34.5 % (36-48); MEAN CORPUSCULAR HEMOGLOBIN 31.2 pg (27.0-33.0); MEAN CORPUSCULAR HGB CONC 34.5 g/dL (32.0-36.0); MEAN CORPUSCULAR VOLUME 90.6 fL (79-99); RED BLOOD CELL COUNT(AUTO) 3.81 MIL/uL (4.00-5.50); RED CELL DISTRIBUTION WIDTH 14.3 % (11.0-15.5); WHITE BLOOD COUNT (AUTO) 11.6 K/uL (4.8-10.8)
[2021-12-01 05:00] LABS: CREATININE 0.6 mg/dL (0.5-1.5); POTASSIUM 5.2 mmol/L (3.5-5.1)
[2021-12-01] MEDS: SUCRALFATE 1 GM TABLET PO SCH ×3 (07:32→16:48)
[2021-12-01] MEDS: PANTOPRAZOLE 40 MG/VIAL IVP SCH (07:55)
[2021-12-01] MEDS: RIFAXIMIN 550 MG TABLET PO SCH ×2 (07:55→20:14)
[2021-12-01] MEDS: LACTULOSE 20 GM/30 ML UDCUP PO SCH ×2 (07:56→20:14)
[2021-12-01] MEDS: NYSTATIN 15 GM POWDER TP SCH ×2 (07:56→20:25)
[2021-12-01] MEDS: FUROSEMIDE 20MG VIAL IV SCH ×2 (07:56→20:15)
[2021-12-01] MEDS ORDERED: KAYEXALATE 15GM/60ML RC SCH (09:00)
[2021-12-01] MEDS: MONTELUKAST SODIUM 10 MG TAB PO SCH (20:14)
[2021-12-01] MEDS: SIMETHICONE 80 MG TAB.CHEW PO PRN (20:15)
[2021-12-01] MEDS: INSULIN GLARGINE 100 UNITS/ML 10 ML VIAL SQ SCH (20:24)
[2021-12-01] MEDS: ATORVASTATIN 20 MG TABLET PO SCH (20:26)
[2021-12-01] MEDS ORDERED: MORPHINE 2 MG SYG ONE (21:48)
[2021-12-01] MEDS ORDERED: MORPHINE 2 MG SYG IVP ONE (22:00)
[2021-12-02] MEDS: SOLU-MEDROL 40MG VIAL IVP SCH ×3 (00:12→16:47)
[2021-12-02] MEDS: INSULIN R NPO SS2 SQ SCH ×6 (01:30→21:35)
[2021-12-02] MEDS: ALBUTEROL INHALER 90MCG/INH IH SCH ×4 (03:28→20:30)
[2021-12-02 03:36] LABS: HEMATOCRIT 35.7 % (36-48); MEAN CORPUSCULAR HEMOGLOBIN 32.3 pg (27.0-33.0); MEAN CORPUSCULAR VOLUME 92.2 fL (79-99); RED BLOOD CELL COUNT(AUTO) 3.87 MIL/uL (4.00-5.50); RED CELL DISTRIBUTION WIDTH 14.3 % (11.0-15.5); WHITE BLOOD COUNT (AUTO) 12.5 K/uL (4.8-10.8)
[2021-12-02 03:37] VITALS: BP 144/69
[2021-12-02 04:11] LABS: ALBUMIN 2.1 g/dL (3.5-5.0); CREATININE 0.5 mg/dL (0.5-1.5); POTASSIUM 4.6 mmol/L (3.5-5.1)
[2021-12-02 08:03] VITALS: BP 132/65
[2021-12-02] MEDS: LACTULOSE 20 GM/30 ML UDCUP PO SCH ×2 (08:32→21:29)
[2021-12-02] MEDS: SIMETHICONE 80 MG TAB.CHEW PO PRN (08:33)
[2021-12-02] MEDS: PANTOPRAZOLE 40 MG/VIAL IVP SCH (08:33)
[2021-12-02] MEDS: SUCRALFATE 1 GM TABLET PO SCH ×3 (08:33→16:47)
[2021-12-02] MEDS: RIFAXIMIN 550 MG TABLET PO SCH ×2 (08:34→21:32)
[2021-12-02] MEDS: FUROSEMIDE 20MG VIAL IV SCH ×2 (08:34→21:29)
[2021-12-02] MEDS: NYSTATIN 15 GM POWDER TP SCH ×2 (08:35→21:00)
[2021-12-02] MEDS: DIAZEPAM 5 MG TABLET PO PRN (10:20)
[2021-12-02 11:33] VITALS: BP 139/61
[2021-12-02] MEDS: MORPHINE 2 MG SYG IVP PRN ×3 (15:16→22:53)
[2021-12-02 15:47] VITALS: BP 146/74
[2021-12-02 19:55] VITALS: BP 142/83
[2021-12-02] MEDS: ATORVASTATIN 20 MG TABLET PO SCH (21:29)
[2021-12-02] MEDS: MONTELUKAST SODIUM 10 MG TAB PO SCH (21:29)
[2021-12-02] MEDS: D5W-1/2 NS/20MEQ KCL 1,000 ML IV SCH (21:29)
[2021-12-02] MEDS: INSULIN GLARGINE 100 UNITS/ML 10 ML VIAL SQ SCH (21:30)
[2021-12-02 23:27] VITALS: BP 132/65
[2021-12-03] MEDS: INSULIN R NPO SS2 SQ SCH ×6 (01:18→21:43)
[2021-12-03] MEDS: MORPHINE 2 MG SYG IVP PRN ×7 (01:18→22:57)
[2021-12-03] MEDS: SOLU-MEDROL 40MG VIAL IVP SCH ×3 (01:21→17:24)
[2021-12-03] MEDS: ALBUTEROL INHALER 90MCG/INH IH SCH ×4 (02:30→20:30)
[2021-12-03 03:14] LABS: BASOPHILS % (AUTO) 0.2 % (0.0-5.0); EOSINOPHILS % (AUTO) 0.4 % (0.0-8.0); HEMATOCRIT 36.3 % (36-48); LYMPHOCYTES % (AUTO) 1.6 % (21.0-51.0); MEAN CORPUSCULAR HGB CONC 33.9 g/dL (32.0-36.0); MEAN CORPUSCULAR VOLUME 91.4 fL (79-99); MONOCYTES % (AUTO) 3.7 % (3.0-13.0); NEUTROPHILS % (AUTO) 92.4 % (40.0-77.0); PLATELET COUNT (AUTO) 29 K/uL (130-400); RED BLOOD CELL COUNT(AUTO) 3.97 MIL/uL (4.00-5.50); RED CELL DISTRIBUTION WIDTH 14.4 % (11.0-15.5); WHITE BLOOD COUNT (AUTO) 16.5 K/uL (4.8-10.8)
[2021-12-03 03:27] LABS: ALBUMIN 2.1 g/dL (3.5-5.0); BILIRUBIN,TOTAL 4.3 mg/dL (0.2-1.0); CREATININE 0.6 mg/dL (0.5-1.5); MAGNESIUM 2.1 mg/dL (1.80-2.40); PHOSPHORUS 3.2 mg/dL (2.5-4.9); POTASSIUM 4.9 mmol/L (3.5-5.1); TOTAL PROTEIN, SERUM 5.3 g/dL (6.0-8.3)
[2021-12-03 03:43] VITALS: BP 121/69
[2021-12-03 06:32] LABS: ABG BASE EXCESS 0.6 mmol/L (-2.0-3.0); ABG HCO3 26.9 mmol/L (21.0-28.0); ABG OXYGEN SATURATION 87.3 % (95.0-99.0); ABG PCO2 50 mmHg (32-45)
[2021-12-03 08:14] VITALS: BP 150/69
[2021-12-03] MEDS: PANTOPRAZOLE 40 MG/VIAL IVP SCH (09:44)
[2021-12-03] MEDS: RIFAXIMIN 550 MG TABLET PO SCH ×2 (09:44→21:35)
[2021-12-03] MEDS: SUCRALFATE 1 GM TABLET PO SCH ×3 (09:44→17:24)
[2021-12-03] MEDS: LACTULOSE 20 GM/30 ML UDCUP PO SCH ×2 (09:44→21:35)
[2021-12-03] MEDS: FUROSEMIDE 20MG VIAL IV SCH ×2 (09:44→21:35)
[2021-12-03] MEDS: NYSTATIN 15 GM POWDER TP SCH ×2 (09:45→21:00)
[2021-12-03] MEDS: SIMETHICONE 80 MG TAB.CHEW PO PRN (10:09)
[2021-12-03 12:18] VITALS: BP 133/71
[2021-12-03] MEDS: D5W-1/2 NS/20MEQ KCL 1,000 ML IV SCH (15:47)
[2021-12-03 16:31] VITALS: BP 129/74
[2021-12-03 19:55] VITALS: BP_SYST 135; BP_SYST 166; BP_DIAS 64; BP_DIAS 78
[2021-12-03] MEDS: MONTELUKAST SODIUM 10 MG TAB PO SCH (21:35)
[2021-12-03] MEDS: ATORVASTATIN 20 MG TABLET PO SCH (21:35)
[2021-12-03] MEDS: INSULIN GLARGINE 100 UNITS/ML 10 ML VIAL SQ SCH (21:38)
[2021-12-04] VITALS: BP 153/74
[2021-12-04] MEDS: ALBUTEROL INHALER 90MCG/INH IH SCH ×3 (01:38→14:30)
[2021-12-04] MEDS: SOLU-MEDROL 40MG VIAL IVP SCH ×3 (01:38→16:42)
[2021-12-04] MEDS: INSULIN R NPO SS2 SQ SCH ×6 (01:38→20:42)
[2021-12-04 03:58] VITALS: BP 135/69
[2021-12-04] MEDS: MORPHINE 2 MG SYG IVP PRN ×2 (04:28→23:16)
[2021-12-04 04:42] LABS: BASOPHILS % (AUTO) 0.2 % (0.0-5.0); EOSINOPHILS % (AUTO) 0.1 % (0.0-8.0); HEMATOCRIT 34.1 % (36-48); LYMPHOCYTES % (AUTO) 1.7 % (21.0-51.0); MEAN CORPUSCULAR HEMOGLOBIN 31.5 pg (27.0-33.0); MEAN CORPUSCULAR HGB CONC 34.3 g/dL (32.0-36.0); MEAN CORPUSCULAR VOLUME 91.9 fL (79-99); MONOCYTES % (AUTO) 2.9 % (3.0-13.0); NEUTROPHILS % (AUTO) 93.5 % (40.0-77.0); PLATELET COUNT (AUTO) 20 K/uL (130-400); RED BLOOD CELL COUNT(AUTO) 3.71 MIL/uL (4.00-5.50); WHITE BLOOD COUNT (AUTO) 13.3 K/uL (4.8-10.8)
[2021-12-04 04:52] LABS: ALBUMIN 2.1 g/dL (3.5-5.0); CREATININE 0.7 mg/dL (0.5-1.5); POTASSIUM 5.1 mmol/L (3.5-5.1); TOTAL PROTEIN, SERUM 5.1 g/dL (6.0-8.3)
[2021-12-04] MEDS: SUCRALFATE 1 GM TABLET PO SCH ×3 (06:31→16:42)
[2021-12-04 08:30] VITALS: BP 151/75
[2021-12-04] MEDS: RIFAXIMIN 550 MG TABLET PO SCH ×2 (08:34→20:41)
[2021-12-04] MEDS: LACTULOSE 20 GM/30 ML UDCUP PO SCH ×2 (08:34→20:41)
[2021-12-04] MEDS: PANTOPRAZOLE 40 MG/VIAL IVP SCH (08:35)
[2021-12-04] MEDS: NYSTATIN 15 GM POWDER TP SCH ×2 (08:35→20:42)
[2021-12-04] MEDS: FUROSEMIDE 20MG VIAL IV SCH ×2 (08:39→20:41)
[2021-12-04 12:48] VITALS: BP 124/72
[2021-12-04] MEDS ORDERED: OXYMETAZOLINE HCL SPRAY 15 ML BOTTLE EN PRN (14:00)
[2021-12-04 16:30] VITALS: BP 118/72
[2021-12-04 20:00] VITALS: BP 129/52
[2021-12-04] MEDS: MONTELUKAST SODIUM 10 MG TAB PO SCH (20:41)
[2021-12-04] MEDS: ATORVASTATIN 20 MG TABLET PO SCH (20:41)
[2021-12-04] MEDS: SIMETHICONE 80 MG TAB.CHEW PO PRN (23:26)
[2021-12-05] VITALS (7 sets, daily range): BP systolic 109–135; BP diastolic 38–94
[2021-12-05] MEDS: SOLU-MEDROL 40MG VIAL IVP SCH ×3 (01:20→17:18)
[2021-12-05] MEDS: INSULIN R NPO SS2 SQ SCH ×6 (01:26→22:41)
[2021-12-05 04:26] LABS: BASOPHILS % (AUTO) 0.2 % (0.0-5.0); EOSINOPHILS % (AUTO) 0.1 % (0.0-8.0); HEMATOCRIT 33.8 % (36-48); LYMPHOCYTES % (AUTO) 1.3 % (21.0-51.0); MEAN CORPUSCULAR HGB CONC 34.6 g/dL (32.0-36.0); MEAN CORPUSCULAR VOLUME 92.3 fL (79-99); MONOCYTES % (AUTO) 2.9 % (3.0-13.0); NEUTROPHILS % (AUTO) 94.4 % (40.0-77.0); PLATELET COUNT (AUTO) 20 K/uL (130-400); RED BLOOD CELL COUNT(AUTO) 3.66 MIL/uL (4.00-5.50); RED CELL DISTRIBUTION WIDTH 14.3 % (11.0-15.5); WHITE BLOOD COUNT (AUTO) 16.5 K/uL (4.8-10.8)
[2021-12-05 04:35] LABS: ALBUMIN 2.1 g/dL (3.5-5.0); BILIRUBIN,TOTAL 5.6 mg/dL (0.2-1.0); CREATININE 0.7 mg/dL (0.5-1.5); POTASSIUM 5.4 mmol/L (3.5-5.1); TOTAL PROTEIN, SERUM 5.1 g/dL (6.0-8.3)
[2021-12-05] MEDS: SUCRALFATE 1 GM TABLET PO SCH ×3 (07:30→17:18)
[2021-12-05] MEDS: LACTULOSE 20 GM/30 ML UDCUP PO SCH ×2 (09:47→20:27)
[2021-12-05] MEDS: RIFAXIMIN 550 MG TABLET PO SCH ×2 (09:48→20:26)
[2021-12-05] MEDS: PANTOPRAZOLE 40 MG/VIAL IVP SCH (09:48)
[2021-12-05] MEDS: FUROSEMIDE 20MG VIAL IV SCH ×2 (09:48→20:26)
[2021-12-05] MEDS: NYSTATIN 15 GM POWDER TP SCH ×2 (09:49→20:27)
[2021-12-05] MEDS: INSULIN GLARGINE 100 UNITS/ML 10 ML VIAL SQ SCH (09:50)
[2021-12-05] MEDS: SIMETHICONE 80 MG TAB.CHEW PO PRN (10:30)
[2021-12-05] MEDS: DIAZEPAM 5 MG TABLET PO PRN (10:31)
[2021-12-05] MEDS: ACETAMINOPHEN 325 MG TAB PO PRN (12:41)
[2021-12-05] MEDS: TRAMADOL HCL 50 MG TABLET PO PRN (15:54)
[2021-12-05] MEDS: MONTELUKAST SODIUM 10 MG TAB PO SCH (20:26)
[2021-12-05] MEDS: ATORVASTATIN 20 MG TABLET PO SCH (20:26)
[2021-12-06 00:10] VITALS: BP 118/47
[2021-12-06] MEDS: SOLU-MEDROL 40MG VIAL IVP SCH ×3 (00:49→17:00)
[2021-12-06] MEDS: INSULIN R NPO SS2 SQ SCH ×6 (02:14→21:35)
[2021-12-06 03:45] VITALS: BP 114/58
[2021-12-06 04:37] LABS: MEAN CORPUSCULAR HEMOGLOBIN 31.7 pg (27.0-33.0); MEAN CORPUSCULAR HGB CONC 34.7 g/dL (32.0-36.0); MEAN CORPUSCULAR VOLUME 91.4 fL (79-99); PLATELET COUNT (AUTO) 24 K/uL (130-400); RED BLOOD CELL COUNT(AUTO) 3.72 MIL/uL (4.00-5.50); RED CELL DISTRIBUTION WIDTH 14.6 % (11.0-15.5); WHITE BLOOD COUNT (AUTO) 20.7 K/uL (4.8-10.8)
[2021-12-06 04:50] LABS: CREATININE 0.7 mg/dL (0.5-1.5); MAGNESIUM 2.2 mg/dL (1.80-2.40); PHOSPHORUS 3.3 mg/dL (2.5-4.9); POTASSIUM 5.3 mmol/L (3.5-5.1)
[2021-12-06 05:09] LABS: PLATELET MORPHOLOGY COMMENT LARGE PLTS PRESENT
[2021-12-06] MEDS: SUCRALFATE 1 GM TABLET PO SCH ×3 (07:30→17:00)
[2021-12-06 08:00] VITALS: BP_SYST 139; BP_SYST 167; BP_DIAS 75; BP_DIAS 94
[2021-12-06] MEDS: PANTOPRAZOLE 40 MG/VIAL IVP SCH (08:28)
[2021-12-06] MEDS: LACTULOSE 20 GM/30 ML UDCUP PO SCH ×2 (08:28→21:00)
[2021-12-06] MEDS: FUROSEMIDE 20MG VIAL IV SCH ×2 (08:28→21:16)
[2021-12-06] MEDS: NYSTATIN 15 GM POWDER TP SCH ×2 (08:29→21:00)
[2021-12-06] MEDS: INSULIN GLARGINE 100 UNITS/ML 10 ML VIAL SQ SCH (08:30)
[2021-12-06] MEDS: RIFAXIMIN 550 MG TABLET PO SCH ×2 (09:00→21:00)
[2021-12-06 10:28] LABS: ABG HCO3 26.9 mmol/L (21.0-28.0); ABG OXYGEN SATURATION 83.8 % (95.0-99.0); ABG PCO2 39 mmHg (32-45)
[2021-12-06] MEDS ORDERED: LIDOCAINE HCL 2% VISCOUS 15 ML UDCUP PO PRN (11:00)
[2021-12-06 12:00] VITALS: BP_SYST 119; BP_SYST 159; BP_DIAS 71; BP_DIAS 78
[2021-12-06] MEDS: TRAMADOL HCL 50 MG TABLET PO PRN (13:18)
[2021-12-06] MEDS: NYSTATIN 100000 UNIT/ML 5ML UDCUP PO SCH ×2 (13:18→19:00)
[2021-12-06 16:00] VITALS: BP_SYST 107; BP_SYST 114; BP_SYST 120; BP_DIAS 58; BP_DIAS 72
[2021-12-06] MEDS ORDERED: LORAZEPAM 2 MG/ML 1 ML VIAL IVP PRN (17:00)
[2021-12-06] MEDS ORDERED: HALOPERIDOL 1 MG TABLET PO PRN ×2 (17:00)
[2021-12-06] MEDS ORDERED: DEXAMETHASONE SOD PHOSPHATE 4 MG/ML 1ML VIAL IVP PRN (17:00)
[2021-12-06] MEDS ORDERED: ONDANSETRON 4MG INJ IVP PRN (17:00)
[2021-12-06] MEDS ORDERED: MORPHINE 20MG/ML SOLN 0.25ML PO PRN ×4 (17:00)
[2021-12-06] MEDS ORDERED: HALOPERIDOL INJ 5 MG/ML VIAL IV PRN (17:00)
[2021-12-06] MEDS ORDERED: ONDANSETRON 4MG TABLET PO PRN (17:00)
[2021-12-06] MEDS ORDERED: LORAZEPAM 1 MG TABLET PO PRN (17:00)
[2021-12-06] MEDS: ALBUTEROL INHALER 90MCG/INH IH SCH (20:30)
[2021-12-06] MEDS: MONTELUKAST SODIUM 10 MG TAB PO SCH (21:00)
[2021-12-06] MEDS: ATORVASTATIN 20 MG TABLET PO SCH (21:00)
[2021-12-07] MEDS: SOLU-MEDROL 40MG VIAL IVP SCH ×3 (00:12→10:37)
[2021-12-07] MEDS: INSULIN R NPO SS2 SQ SCH ×4 (02:00→13:27)
[2021-12-07] MEDS: ALBUTEROL INHALER 90MCG/INH IH SCH ×3 (02:16→13:27)
[2021-12-07] MEDS: NYSTATIN 100000 UNIT/ML 5ML UDCUP PO SCH ×2 (02:16→10:37)
[2021-12-07] MEDS: SUCRALFATE 1 GM TABLET PO SCH ×2 (07:25→10:29)
[2021-12-07] MEDS: LACTULOSE 20 GM/30 ML UDCUP PO SCH (07:58)
[2021-12-07] MEDS: RIFAXIMIN 550 MG TABLET PO SCH (07:58)
[2021-12-07] MEDS: INSULIN GLARGINE 100 UNITS/ML 10 ML VIAL SQ SCH (08:01)
[2021-12-07] MEDS: NYSTATIN 15 GM POWDER TP SCH (08:04)
[2021-12-07] MEDS: FUROSEMIDE 20MG VIAL IV SCH ×2 (08:06→10:37)
== END 2021-12-07 14:59 | DRG 137 ==
LOC: EDH 17:43 → EDHIP 17:44 → 2BH 11-21 09:23 → 2AH 11-22 14:55
PROVIDERS: ADMIT Hospitalist; ATTEND Hospitalist
DX: U07.1 COVID-19 (principal); J96.01 Acute respiratory failure with hypoxia; K72.00 Acute and subacute hepatic failure without coma; J12.82 Pneumonia due to coronavirus disease 2019; E43 Unspecified severe protein-calorie malnutrition; J80 Acute respiratory distress syndrome; D69.6 Thrombocytopenia, unspecified; E87.1 Hypo-osmolality and hyponatremia; K72.10 Chronic hepatic failure without coma; D68.4 Acquired coagulation factor deficiency; D69.59 Other secondary thrombocytopenia; E11.65 Type 2 diabetes mellitus with hyperglycemia; E11.9 Type 2 diabetes mellitus without complications; E66.01 Morbid (severe) obesity due to excess calories; K74.60 Unspecified cirrhosis of liver; F41.9 Anxiety disorder, unspecified; E78.00 Pure hypercholesterolemia, unspecified; E78.5 Hyperlipidemia, unspecified; F19.90 Other psychoactive substance use, unspecified, uncomplicated; I10 Essential (primary) hypertension; Z66 Do not resuscitate; Z80.3 Family history of malignant neoplasm of breast; Z82.0 Family history of epilepsy and other diseases of the nervous system; Z82.3 Family history of stroke; Z82.49 Family history of ischemic heart disease and other diseases of the circulatory system; Z82.5 Family history of asthma and other chronic lower respiratory diseases; Z83.3 Family history of diabetes mellitus; Z90.710 Acquired absence of both cervix and uterus; Z90.11 Acquired absence of right breast and nipple; Z85.3 Personal history of malignant neoplasm of breast; E87.5 Hyperkalemia; C50.919 Malignant neoplasm of unspecified site of unspecified female breast; D70.9 Neutropenia, unspecified; K59.00 Constipation, unspecified
CPT/HCPCS: 36415; 36430; 36600; 71045; 74018; 76700; 80048; 80053; 81001; 82040; 82140; 82330; 82803; 82948; 83615; 83735; 83880; 84100; 84145; 84484; 85025; 85027; 85378; 85610; 85730; 86140; 86156; 86850; 86870; 86900; 86901; 87635; 93005; 94660; C1751; C1894; C9113; G0378; J0692; J0696; J1100; J1815; J1940; J2405; J2920; J2930; J3480; J3490; J7050; P9034